=== PATIENT | male | born 1940 | race Caucasian/White ===

== ENCOUNTER 2017-04-22 07:55 | Day surgery (SDC) | payer OTHER ==
[~2017-04-22] VITALS: Ht 188 cm; Wt 114.8 kg
[~2017-04-22 07:55] MED LIST: ALBU90OI61 INH; ASPI81CH PO; ASPI81EC PO; Augmentin 875-1 EACH PO; BIOGAIA1 EACH PO; CEFU500 PO; Ceftin500 MG PO; DOXA4 PO; FINA5 PO; FISH OIL + D31 EACH PO; MULVITMINF PO; OMEPRAZOLE MAGN20 MG PO; ONDA4ODT MM; Percocet 5-3251 EACH PO; SIMV40 PO; TAMS.4ER PO
[2017-11-01] MEDS ORDERED: [UNRECOGNIZED DRUG - OTHER] PO (09:28)
[2017-11-01] MEDS ORDERED: [UNRECOGNIZED DRUG - OTHER] PO (09:29)
[2017-11-09] MEDS ORDERED: ENOX40I SC (10:46)
[2017-11-09] MEDS ORDERED: OXYC5 PO (10:47)
[2017-11-09] MEDS ORDERED: Promethazine12.5 M1 PO (10:48)
[2017-11-10] MEDS ORDERED: ASPI325EC PO (07:48)
[2017-11-10] MEDS ORDERED: Percocet 5-3251 EACH PO (14:43)
[2017-12-21] MEDS ORDERED: RIFA300 PO (09:35)
[2017-12-23] MEDS ORDERED: LISI5 PO (10:03)
[2018-01-04] MEDS ORDERED: XARELTO15 MG PO (13:25)
== END 2017-04-23 00:04 | disposition home or self-care (01) ==
LOC: ORSCMMR 07:55
PROVIDERS: Internal Medicine Gastroenterology
PROC: 0DB78ZX Excision of Stomach, Pylorus, Via Natural or Artificial Opening Endoscopic, Diagnostic (ICD-10-PCS; principal; 2017-04-22 09:30)
PROC: 0DBL8ZX Excision of Transverse Colon, Via Natural or Artificial Opening Endoscopic, Diagnostic (ICD-10-PCS; principal; 2017-04-22 09:30)
PROC: 0DBK8ZX Excision of Ascending Colon, Via Natural or Artificial Opening Endoscopic, Diagnostic (ICD-10-PCS; principal; 2017-04-22 09:30)
PROC: 0DBH8ZX Excision of Cecum, Via Natural or Artificial Opening Endoscopic, Diagnostic (ICD-10-PCS; principal; 2017-04-22 09:30)
PROC: 0DB68ZX Excision of Stomach, Via Natural or Artificial Opening Endoscopic, Diagnostic (ICD-10-PCS; principal; 2017-04-22 09:30)
DX: Z12.11 Encounter for screening for malignant neoplasm of colon (principal); Z86.010 Personal history of colon polyps; Z80.0 Family history of malignant neoplasm of digestive organs; K21.9 Gastro-esophageal reflux disease without esophagitis; K31.7 Polyp of stomach and duodenum; K44.9 Diaphragmatic hernia without obstruction or gangrene; D12.0 Benign neoplasm of cecum; D12.2 Benign neoplasm of ascending colon; D12.3 Benign neoplasm of transverse colon; Q27.33 Arteriovenous malformation of digestive system vessel; K57.30 Diverticulosis of large intestine without perforation or abscess without bleeding; K64.8 Other hemorrhoids; E78.5 Hyperlipidemia, unspecified; E66.9 Obesity, unspecified; Z68.32 Body mass index [BMI] 32.0-32.9, adult; J45.909 Unspecified asthma, uncomplicated; G47.33 Obstructive sleep apnea (adult) (pediatric); Z79.899 Other long term (current) drug therapy; Z79.82 Long term (current) use of aspirin; Z87.891 Personal history of nicotine dependence
CPT/HCPCS: 88305; 88342; J7120

== ENCOUNTER → 2017-05-05 | Outpatient (CLI) | payer OTHER ==
[~2017-05-05] MED LIST changes: +ASPI325EC PO; +Bactrim Ds Tab1 EACH PO; +CEPH500 PO; +Ceftriaxone2 G1 IV; +ENOX40I SC; +LISI5 PO; +OXYC5 PO; +Promethazine12.5 M1 PO; +RIFA300 PO; +XARELTO15 MG PO; +[UNRECOGNIZED DRUG - OTHER] PO; +[UNRECOGNIZED DRUG - OTHER] PO
== END | disposition home or self-care (01) ==
LOC: LAB SHORT 08:59 → PLD 08:59
DX: D48.5 Neoplasm of uncertain behavior of skin (principal)
CPT/HCPCS: 88305

== ENCOUNTER → 2017-05-18 | Outpatient (CLI) | payer OTHER | END | disposition home or self-care (01) | LOC: PLD 08:39 → LAB SHORT 08:39 | DX: C44.310 Basal cell carcinoma of skin of unspecified parts of face (principal) | CPT/HCPCS: 88305 ==

== ENCOUNTER 2017-10-05 10:52 | Day surgery (SDC) | payer OTHER ==
[~2017-10-05 10:52] MED LIST changes: -ASPI325EC PO; -Bactrim Ds Tab1 EACH PO; -CEPH500 PO; -Ceftriaxone2 G1 IV; -ENOX40I SC; -LISI5 PO; -OXYC5 PO; -Promethazine12.5 M1 PO; -RIFA300 PO; -XARELTO15 MG PO; -[UNRECOGNIZED DRUG - OTHER] PO; -[UNRECOGNIZED DRUG - OTHER] PO
[2017-10-05 13:10] LABS: BODY FLUID RBC 0.077 (0-0); RBC Count, Synovial Fluid 77000 /mm3 (0-0); WBC Count, Synovial Fluid 1487 /mm3 (0-180)
[2017-10-05 13:56] LABS: Appearance, Synovial Fluid Bloody (Clear); Color, Synovial Fluid Red (None-P Yel); Lymphs, Synovial Fluid 11 % (0-15); Monocytes/Macrophages, Synovia 83 % (0-65); Neutrophils, Synovial Fluid 6 % (0-24)
== END 2017-10-05 22:42 | disposition home or self-care (01) ==
LOC: US 10:52
PROVIDERS: Orthopaedic Surgery
PROC: 0S9D3ZX Drainage of Left Knee Joint, Percutaneous Approach, Diagnostic (ICD-10-PCS; principal; 2017-10-05)
DX: M25.462 Effusion, left knee (principal); Z96.652 Presence of left artificial knee joint
CPT/HCPCS: 20611; 76942; 87070; 89051

== ENCOUNTER 2017-11-27 07:38 | Emergency (ER) | payer OTHER ==
[~2017-11-27] VITALS: Ht 190.5 cm; Wt 114.8 kg
[~2017-11-27 07:38] MED LIST changes: +ASPI325EC PO; +ENOX40I SC; +OXYC5 PO; +Promethazine12.5 M1 PO; +[UNRECOGNIZED DRUG - OTHER] PO; +[UNRECOGNIZED DRUG - OTHER] PO
[2017-11-27] MEDS ORDERED: CEPH500 PO (08:04)
== END 2017-11-27 08:13 | disposition home or self-care (01) ==
LOC: ER 07:38
DX: T81.4XXA Infection following a procedure, initial encounter (principal); L03.116 Cellulitis of left lower limb; J45.909 Unspecified asthma, uncomplicated; Z87.891 Personal history of nicotine dependence; Z79.899 Other long term (current) drug therapy; Z79.82 Long term (current) use of aspirin; Z96.652 Presence of left artificial knee joint
CPT/HCPCS: 99283

== ENCOUNTER 2017-12-02 11:57 | Inpatient (IN) | payer OTHER ==
[~2017-12-02] VITALS: Ht 190.5 cm; Wt 114.8 kg
[~2017-12-02 11:57] MED LIST changes: +CEPH500 PO
[2017-12-02 15:36] LABS: BODY FLUID RBC 0.022 (0-0); RBC Count, Synovial Fluid 22000 /mm3 (0-0); WBC Count, Synovial Fluid 982 /mm3 (0-180)
[2017-12-02 16:25] LABS: Lymphs, Synovial Fluid 6 % (0-15); Monocytes/Macrophages, Synovia 1 % (0-65); Neutrophils, Synovial Fluid 93 % (0-24)
[2017-12-02 16:27] LABS: Lymphs, Synovial Fluid 85 % (0-15); Monocytes/Macrophages, Synovia 10 % (0-65); Neutrophils, Synovial Fluid 5 % (0-24)
[2017-12-02 16:32] LABS: BODY FLUID RBC 0.077 (0-0); RBC Count, Synovial Fluid 77000 /mm3 (0-0)
[2017-12-02 16:42] LABS: WBC Count, Synovial Fluid 61320 /mm3 (0-180)
[2017-12-02 16:43] LABS: Appearance, Synovial Fluid Bloody (Clear); Color, Synovial Fluid Red (None-P Yel)
[2017-12-02 16:44] LABS: Appearance, Synovial Fluid Cloudy (Clear); Color, Synovial Fluid Brown (None-P Yel)
[2017-12-03 06:45] LABS: BASOPHILS ABSOLUTE AUTO 0.04 K/mm3 (0.00-0.23); BASOPHILS PERCENT AUTO 0 % (0-2); EOSINOPHILS ABSOLUTE AUTO 0.01 K/mm3 (0.00-0.68); EOSINOPHILS PERCENT AUTO 0 % (0-6); Hematocrit 32.5 % (37.0-53.0); Hemoglobin 10.5 g/dL (13.5-17.5); IMMATURE GRAN ABSOLUTE AUTO 0.13 K/mm3 (0.00-0.10); IMMATURE GRAN PERCENT AUTO 1 % (0-1); LYMPHOCYTES ABSOLUTE AUTO 1.42 K/mm3 (0.84-5.20); LYMPHOCYTES PERCENT AUTO 13 % (21-46); MONOCYTES ABSOLUTE AUTO 1.04 K/mm3 (0.16-1.47); MONOCYTES PERCENT AUTO 10 % (4-13); Mean Corpuscular HGB 31.1 pg (26.0-34.0); Mean Corpuscular HGB Conc 32.3 g/dL (31.5-36.5); Mean Corpuscular Volume 96 fL (80-100); Mean Platelet Volume 9.3 fL (9.1-12.4); NEUTROPHILS ABSOLUTE AUTO 8.11 K/mm3 (1.96-9.15); NEUTROPHILS PERCENT AUTO 75 % (41-73); Platelet Count 327 K/mm3 (150-400); RDW Coefficient Variation 12.5 % (11.7-14.2); RDW Standard Deviation 44.2 fL (35.1-46.3); Red Blood Cell Count 3.38 M/mm3 (4.30-5.90); White Blood Cell Count 10.75 K/mm3 (4.00-11.30)
[2017-12-03 07:11] LABS: Anion Gap 9 mmol/L (6-16); Blood Urea Nitrogen 26 mg/dL (8-24); Bun/Creatinine Ratio 21.7 (12.0-20.0); CO2, Blood 25 mmol/L (21-32); Calcium, Blood 7.9 mg/dL (8.5-10.1); Chloride, Blood 102 mmol/L (98-108); Glomerular Filtration Rate >60 (60-); Glucose, Blood 127 mg/dL (70-99); Magnesium, Blood 2.3 mg/dL (1.6-2.4); Potassium, Blood 4.7 mmol/L (3.5-5.5); Sodium, Blood 136 mmol/L (136-145)
[2017-12-03 17:53] LABS: Vancomycin, Trough 15.1 ug/mL (5.0-10.0)
[2017-12-05 08:10] LABS: BASOPHILS ABSOLUTE AUTO 0.08 K/mm3 (0.00-0.23); BASOPHILS PERCENT AUTO 1 % (0-2); EOSINOPHILS ABSOLUTE AUTO 0.32 K/mm3 (0.00-0.68); EOSINOPHILS PERCENT AUTO 4 % (0-6); Hematocrit 35.6 % (37.0-53.0); Hemoglobin 11.5 g/dL (13.5-17.5); IMMATURE GRAN ABSOLUTE AUTO 0.17 K/mm3 (0.00-0.10); IMMATURE GRAN PERCENT AUTO 2 % (0-1); LYMPHOCYTES ABSOLUTE AUTO 1.28 K/mm3 (0.84-5.20); LYMPHOCYTES PERCENT AUTO 15 % (21-46); MONOCYTES ABSOLUTE AUTO 0.61 K/mm3 (0.16-1.47); MONOCYTES PERCENT AUTO 7 % (4-13); Mean Corpuscular HGB 31.7 pg (26.0-34.0); Mean Corpuscular HGB Conc 32.3 g/dL (31.5-36.5); Mean Corpuscular Volume 98 fL (80-100); Mean Platelet Volume 8.9 fL (9.1-12.4); NEUTROPHILS ABSOLUTE AUTO 5.88 K/mm3 (1.96-9.15); NEUTROPHILS PERCENT AUTO 71 % (41-73); Platelet Count 325 K/mm3 (150-400); RDW Coefficient Variation 12.2 % (11.7-14.2); RDW Standard Deviation 44.4 fL (35.1-46.3); Red Blood Cell Count 3.63 M/mm3 (4.30-5.90); White Blood Cell Count 8.34 K/mm3 (4.00-11.30)
[2017-12-05] MEDS ORDERED: ASPI325EC PO (11:50)
[2017-12-05] MEDS ORDERED: Ceftriaxone2 G1 IV (11:51)
[2017-12-05] MEDS ORDERED: Percocet 5-3251 EACH PO (11:52)
[2017-12-05] MEDS ORDERED: Bactrim Ds Tab1 EACH PO (11:52)
== END 2017-12-05 16:30 | disposition home or self-care (01) | DRG 487 ==
LOC: ORSCMMR 11:57 → ORD 14:00 → ORSCMMR 17:07 → SURS 17:07
PROVIDERS: Orthopaedic Surgery
PROC: 0S9D00Z Drainage of Left Knee Joint with Drainage Device, Open Approach (ICD-10-PCS; 2017-12-02)
PROC: 0SPD09Z Removal of Liner from Left Knee Joint, Open Approach (ICD-10-PCS; 2017-12-02)
PROC: 0SUW09Z Supplement Left Knee Joint, Tibial Surface with Liner, Open Approach (ICD-10-PCS; 2017-12-02)
PROC: 0SBD0ZZ Excision of Left Knee Joint, Open Approach (ICD-10-PCS; principal; 2017-12-02 14:00)
PROC: 02HV33Z Insertion of Infusion Device into Superior Vena Cava, Percutaneous Approach (ICD-10-PCS; 2017-12-05)
DX: T84.54XA Infection and inflammatory reaction due to internal left knee prosthesis, initial encounter (principal); M25.562 Pain in left knee; Z96.652 Presence of left artificial knee joint; B95.61 Methicillin susceptible Staphylococcus aureus infection as the cause of diseases classified elsewhere; E78.5 Hyperlipidemia, unspecified; G47.33 Obstructive sleep apnea (adult) (pediatric); N40.0 Benign prostatic hyperplasia without lower urinary tract symptoms; Z85.828 Personal history of other malignant neoplasm of skin
CPT/HCPCS: 36415; 80048; 80202; 82565; 83735; 85025; 85651; 86140; 87070; 87071; 87075; 87077; 87147; 87186; 87205; 88305; 89051; 90686; 94762; 97110; 97116; 97161; 97530; C1776; G8978; G8979; J0690; J0696; J1100; J1885; J1956; J2250; J2405; J3010; J3370; J7050; J7120

== ENCOUNTER 2017-12-06 08:00 | Day surgery (SDC) | payer OTHER ==
[~2017-12-06 08:00] MED LIST changes: +Bactrim Ds Tab1 EACH PO; +Ceftriaxone2 G1 IV
== END 2017-12-06 22:37 | disposition home or self-care (01) ==
LOC: ATC 08:00
DX: T84.54XA Infection and inflammatory reaction due to internal left knee prosthesis, initial encounter (principal)
CPT/HCPCS: 96365; J0696

== ENCOUNTER 2017-12-07 08:10 | Day surgery (SDC) | payer OTHER | END 2017-12-07 10:08 | disposition home or self-care (01) | LOC: ATC 08:10 | DX: T84.53XA Infection and inflammatory reaction due to internal right knee prosthesis, initial encounter (principal); Z87.891 Personal history of nicotine dependence | CPT/HCPCS: 96365; J0696 ==

== ENCOUNTER 2017-12-08 00:24 | Day surgery (SDC) | payer OTHER | END 2017-12-08 08:50 | disposition home or self-care (01) | LOC: ATC 00:24 | DX: T81.40XA Infection following a procedure, unspecified, initial encounter (principal); Z96.652 Presence of left artificial knee joint | CPT/HCPCS: 96365; J0696 ==

== ENCOUNTER 2017-12-09 00:21 | Day surgery (SDC) | payer OTHER | END 2017-12-09 08:47 | disposition home or self-care (01) | LOC: ATC 00:21 | DX: T81.40XA Infection following a procedure, unspecified, initial encounter (principal); Z96.652 Presence of left artificial knee joint | CPT/HCPCS: 96365; J0696 ==

== ENCOUNTER 2018-01-05 00:20 | Day surgery (SDC) | payer OTHER ==
[~2018-01-05 00:20] MED LIST changes: +LISI5 PO; +RIFA300 PO; +XARELTO15 MG PO
== END 2018-01-05 11:25 | disposition home or self-care (01) ==
LOC: ATC 00:20
DX: T84.53XA Infection and inflammatory reaction due to internal right knee prosthesis, initial encounter (principal); Z96.651 Presence of right artificial knee joint
CPT/HCPCS: 96365; J0696

== ENCOUNTER 2018-01-06 01:15 | Day surgery (SDC) | payer OTHER | END 2018-01-06 10:32 | disposition home or self-care (01) | LOC: ATC 01:15 | DX: T84.54XA Infection and inflammatory reaction due to internal left knee prosthesis, initial encounter (principal) | CPT/HCPCS: 96365; J0696 ==

== ENCOUNTER 2018-01-07 10:37 | Day surgery (SDC) | payer OTHER | END 2018-01-07 22:45 | disposition home or self-care (01) | LOC: ATC 10:37 | DX: T84.54XA Infection and inflammatory reaction due to internal left knee prosthesis, initial encounter (principal); Z87.891 Personal history of nicotine dependence | CPT/HCPCS: 96365; J0696 ==

== ENCOUNTER → 2018-11-16 | Outpatient (CLI) | payer OTHER | END | disposition home or self-care (01) | LOC: LAB SHORT 08:33 → PLD 08:33 | DX: C44.311 Basal cell carcinoma of skin of nose (principal) | CPT/HCPCS: 88305 ==

== ENCOUNTER 2019-05-04 06:58 | Day surgery (SDC) | payer OTHER ==
[~2019-05-04] VITALS: Ht 160 cm; Wt 112.7 kg
[~2019-05-04 06:58] MED LIST changes: +LISI20 PO; +OMEP20ER PO; +PROAIR DIGIHAL90 MCG INH
== END 2019-05-04 10:20 | disposition home or self-care (01) ==
LOC: ORSCSDS 06:58
PROVIDERS: Podiatrist Foot & Ankle Surgery
PROC: 0SGP04Z Fusion of Right Toe Phalangeal Joint with Internal Fixation Device, Open Approach (ICD-10-PCS; principal; 2019-05-04 08:45)
DX: M20.41 Other hammer toe(s) (acquired), right foot (principal); I10 Essential (primary) hypertension; G47.33 Obstructive sleep apnea (adult) (pediatric); J45.909 Unspecified asthma, uncomplicated; Z79.899 Other long term (current) drug therapy
CPT/HCPCS: C1713; J0171; J0690; J1100; J1885; J2250; J2405; J2704; J3010; J7120

== ENCOUNTER 2021-02-04 10:13 | Day surgery (SDC) | payer OTHER ==
[~2021-02-04] VITALS: Ht 190.5 cm; Wt 104.8 kg
== END 2021-02-04 11:40 | disposition home or self-care (01) ==
LOC: ORSCSDS 10:13
PROVIDERS: Internal Medicine Gastroenterology
PROC: 0DJD8ZZ Inspection of Lower Intestinal Tract, Via Natural or Artificial Opening Endoscopic (ICD-10-PCS; principal; 2021-02-04 11:30)
DX: Z12.11 Encounter for screening for malignant neoplasm of colon (principal); K57.30 Diverticulosis of large intestine without perforation or abscess without bleeding; Z86.010 Personal history of colon polyps; Z80.0 Family history of malignant neoplasm of digestive organs; I10 Essential (primary) hypertension; G47.33 Obstructive sleep apnea (adult) (pediatric); Z87.891 Personal history of nicotine dependence; Z79.899 Other long term (current) drug therapy
CPT/HCPCS: J2704; J7120

== ENCOUNTER → 2021-04-01 | Outpatient (CLI) | payer OTHER | END | disposition home or self-care (01) | LOC: LAB SHORT 14:47 | DX: C44.319 Basal cell carcinoma of skin of other parts of face (principal) | CPT/HCPCS: 88305 ==

== ENCOUNTER 2023-08-17 13:46 | Day surgery (SDC) | payer OTHER ==
[~2023-08-17] VITALS: Ht 190.5 cm; Wt 98.6 kg
[~2023-08-17 13:46] MED LIST changes: +Atropine Sulfate 0.1 MG/ML 10ML SYR ONE; +Glycopyrrolate 0.2 MG/ML 1MLVIAL ONE; +Lactated Ringer's 1,000 ML IV ONE; +Lidocaine 2% 5 ML SDV ONE; +Lidocaine HCl/Pf 1% 5 ML VIAL ONE; +Methylene Blue 1% 100 MG/10 ML VIAL ONE; +Ondansetron HCl 2 MG / ML 2ML Vial ONE; +ePHEDrine Sulfate 50 MG/ML 1ML Injection ONE
[2023-08-17] MEDS ORDERED: Lactated Ringer's 1,000 ML IV ONE (15:50)
[2023-08-17] MEDS ORDERED: propofoL 50 ML IV ONE (16:06)
[2023-08-17] MEDS ORDERED: Lidocaine 2% 5 ML SDV ONE (16:08)
[2023-08-17 17:16] VITALS: BP 110/66
== END 2023-08-17 17:19 | disposition home or self-care (01) ==
LOC: ORSCSDS 13:46
PROVIDERS: Internal Medicine Gastroenterology
PROC: 0DBN8ZX Excision of Sigmoid Colon, Via Natural or Artificial Opening Endoscopic, Diagnostic (ICD-10-PCS; principal; 2023-08-17 15:00)
PROC: 0DBE8ZX Excision of Large Intestine, Via Natural or Artificial Opening Endoscopic, Diagnostic (ICD-10-PCS; principal; 2023-08-17 15:00)
PROC: 0DBK8ZX Excision of Ascending Colon, Via Natural or Artificial Opening Endoscopic, Diagnostic (ICD-10-PCS; principal; 2023-08-17 15:00)
DX: R19.7 Diarrhea, unspecified (principal); D12.2 Benign neoplasm of ascending colon; K63.5 Polyp of colon; K64.4 Residual hemorrhoidal skin tags; K57.30 Diverticulosis of large intestine without perforation or abscess without bleeding; Z86.010 Personal history of colon polyps; Z80.0 Family history of malignant neoplasm of digestive organs; K21.9 Gastro-esophageal reflux disease without esophagitis; G47.33 Obstructive sleep apnea (adult) (pediatric); I10 Essential (primary) hypertension; J45.909 Unspecified asthma, uncomplicated; Z79.899 Other long term (current) drug therapy
CPT/HCPCS: 88305; J0461; J2001; J2405; J2704; J7120; Q9968